=== PATIENT | female | born 1975 | race Two or more races ===

== ENCOUNTER → 2024-07-22 09:12 | Outpatient (CLI) | payer OTHER ==
[2024-07-22 09:39] LABS: HEMOGLOBIN 10.7 g/dL (12.0-15.00); MEAN CELL VOLUME 77.6 fL (80.00-100.00); MEAN CORPUSCULAR HEMOGLOBIN 25.2 pg (27.00-32.0); MEAN CORPUSCULAR HGB CONC 32.4 g/dl (32.0-36.0); PLATELET COUNT 289 K/uL (150-450); RED BLOOD COUNT 4.25 M/uL (4.00-6.00); RED CELL DISTRIBUTION WIDTH 15.8 % (11.5-14.5)
[2024-07-22 11:03] LABS: FERRITIN 3.1 NG/ML (8-252)
== END | disposition home or self-care (01) ==
LOC: LAB 09:12
PROVIDERS: ATTEND Internal Medicine Hematology & Oncology
DX: D50.0 Iron deficiency anemia secondary to blood loss (chronic) (principal)

== ENCOUNTER 2024-08-06 09:37 | Emergency (ER) | payer OTHER ==
[~2024-08-06] VITALS: Ht 157.5 cm; Wt 72.6 kg
[2024-08-06] MEDS ORDERED: SYNTHROID137 MCG PO (10:02)
[2024-08-06 10:52] LABS: HEMATOCRIT 34.7 % (36.0-45.00); HEMOGLOBIN 11.4 g/dL (12.0-15.00); MEAN CELL VOLUME 77.5 fL (80.00-100.00); MEAN CORPUSCULAR HEMOGLOBIN 25.4 pg (27.00-32.0); MEAN CORPUSCULAR HGB CONC 32.8 g/dl (32.0-36.0); PLATELET COUNT 280 K/uL (150-450); RED BLOOD COUNT 4.48 M/uL (4.00-6.00); RED CELL DISTRIBUTION WIDTH 16.5 % (11.5-14.5)
[2024-08-06 11:36] LABS: ALBUMIN 3.8 gm/dL (3.4-5.0); BILIRUBIN TOTAL 0.75 mg/dL (0.3-1.2); CALCIUM 8.7 mg/dL (8.5-10.1); CREATININE SERUM 0.83 mg/dL (0.55-1.02); GFR 73.37; POTASSIUM 3.6 mEq/L (3.5-5.1); TOTAL PROTEIN 7.8 gm/dL (6.4-8.2)
[2024-08-06 14:44] VITALS: BP 154/81; O2SAT 98
== END 2024-08-06 14:45 | disposition home or self-care (01) ==
LOC: ER 09:39
PROVIDERS: General Practice
DX: M54.2 Cervicalgia (principal); E03.9 Hypothyroidism, unspecified; Z85.850 Personal history of malignant neoplasm of thyroid

== ENCOUNTER 2024-09-15 19:22 | Emergency (ER) | payer OTHER ==
[~2024-09-15] VITALS: Ht 157.5 cm; Wt 72.6 kg
[~2024-09-15 19:22] MED LIST: SYNTHROID137 MCG PO
[2024-09-15] MEDS ORDERED: KETOROLAC TROMETHAMINE 30 MG VIAL IM STA (21:09)
[2024-09-15] MEDS ORDERED: IBU600 MG PO (23:12)
== END 2024-09-15 23:23 | disposition home or self-care (01) ==
LOC: ER 19:24
DX: S92.502A Displaced unspecified fracture of left lesser toe(s), initial encounter for closed fracture (principal); W22.8XXA Striking against or struck by other objects, initial encounter; Y93.89 Activity, other specified; Y92.89 Other specified places as the place of occurrence of the external cause
CPT/HCPCS: 73630; 96372; 99283; J1885

== ENCOUNTER 2024-11-28 07:44 | Outpatient (CLI) | payer OTHER ==
[~2024-11-28 07:44] MED LIST changes: +IBU600 MG PO
[2024-11-28 09:21] LABS: % SATURACION 8.2 % (15-50)
[2024-11-28 09:23] LABS: FERRITIN 4.9 NG/ML (8-252)
[2024-11-28 09:43] LABS: HEMATOCRIT 36.6 % (36.0-45.00); HEMOGLOBIN 12.1 g/dL (12.0-15.00); MEAN CELL VOLUME 79.1 fL (80.00-100.00); MEAN CORPUSCULAR HEMOGLOBIN 26.1 pg (27.00-32.0); PLATELET COUNT 275 K/uL (150-450); RED BLOOD COUNT 4.63 M/uL (4.00-6.00)
== END 2024-11-28 07:48 | disposition home or self-care (01) ==
LOC: LAB 07:44
DX: D50.0 Iron deficiency anemia secondary to blood loss (chronic) (principal)

== ENCOUNTER 2025-01-02 08:13 | Outpatient (CLI) | payer OTHER ==
[2025-01-02 09:54] LABS: HEMATOCRIT 34.7 % (36.0-45.00); HEMOGLOBIN 11.3 g/dL (12.0-15.00); MEAN CELL VOLUME 80.7 fL (80.00-100.00); MEAN CORPUSCULAR HEMOGLOBIN 26.3 pg (27.00-32.0); MEAN CORPUSCULAR HGB CONC 32.5 g/dl (32.0-36.0); PLATELET COUNT 258 K/uL (150-450); RED CELL DISTRIBUTION WIDTH 18.6 % (11.5-14.5)
[2025-01-02 10:16] LABS: PH,URINE 6.5 (5.0-8.0); URINE APPEARANCE Clear; URINE BILIRRUBIN Negative (NEGATIVE); URINE COLOR Yellow; URINE GLUCOSE Negative (NEGATIVE); URINE KETONE Negative (NEGATIVE); URINE LEUKOCYTE Negative; URINE NITRATE Negative; URINE PROTEIN Negative (NEGATIVE)
[2025-01-02 10:17] LABS: URINE BACTERIA 48.9 uL (0.0-1933); URINE EPITHELIAL CELLS 6.1 uL (0.0-38.8); URINE WBC 2.8 uL (0.0-23.2)
[2025-01-02 10:20] LABS: URINE BLOOD TRACE
[2025-01-02 10:34] LABS: URIC ACID 5.2 mg/dL (2.5-7.5)
[2025-01-02 11:03] LABS: ALBUMIN 3.5 gm/dL (3.4-5.0); ALKALINE PHOSPHATASE 61 U/L (50-136); ALT/SGPT 23 U/L (12-78); AMYLASE 91 U/L (25-115); ANION GAP 10 (10.0-20.0); AST/SGOT 16 U/L (15-37); BLOOD UREA NITROGEN 12 mg/dL (7-18); BUN CREA RATIO 15 (7.0-25.0); CALCIUM 8.7 mg/dL (8.5-10.1); CARBON DIOXIDE 28 mEq/L (21-32); CHLORIDE 106 mmol/L (98-107); CHOL HDL RATIO 3.4 (0-5.0); CHOLESTEROL 158 mg/dL (0-200); CREATININE SERUM 0.78 mg/dL (0.55-1.02); FREE TRIODOTIRONINE 2.01 pg/ml (2.18-3.98); GFR 78.83; GLOBULINA 3.6 G/DL (2.4-3.5); GLUCOSE FASTING 87 mg/dL (65-100); HDL 47 mg/dl (40-60); LDL 92 mg/dl (0-130); LIPASE 90 U/L (13-75); OSMOLALITY SERUM 279 MOSM/KG (275-295); POTASSIUM 3.76 mEq/L (3.5-5.1); SODIUM 140 mmol/L (136-145); T4 FREE 0.88 NG/ML (0.76-1.46); T4 TOTAL 6.55 UG/DL (4.8-13.9); TOTAL PROTEIN 7.1 gm/dL (6.4-8.2); TRIGLYCERIDES 95 mg/dL (0-150); VLDL 19 (0-39)
[2025-01-02 11:20] LABS: C-REACTIVE PROTEIN < 0.29 MG/DL (0.00-0.29); FERRITIN 3.8 NG/ML (8-252)
[2025-01-04 11:53] LABS: VITAMIN D3 25 HYDROXY 10.13 ng/ml (30-120)
[2025-01-05 07:06] LABS: HEPATITIS B SURFACE ANTIBODY Non Reactive (.)
[2025-01-05 09:10] LABS: ANTI THYROID PEROXIDASE 23 IU/mL (0-34); FOLLICLE STIMULATING HORMONE 1.7 mIU/mL (.); HOMOCYSTEINE 17.7 umol/L (0.0-14.5); INSULIN LEVELS 13.4 uIU/mL (2.6-24.9); LEUTEINIZING HORMONE 5.6 mIU/mL (.); PROGESTERONA 10.3 ng/mL (.)
== END 2025-01-02 08:19 | disposition home or self-care (01) ==
LOC: LAB 08:13
PROVIDERS: ATTEND Obstetrics & Gynecology
DX: E03.8 Other specified hypothyroidism (principal); E56.8 Deficiency of other vitamins; E55.0 Rickets, active; E78.2 Mixed hyperlipidemia; N95.1 Menopausal and female climacteric states; N95.8 Other specified menopausal and perimenopausal disorders; E16.1 Other hypoglycemia; E72.9 Disorder of amino-acid metabolism, unspecified; R79.82 Elevated C-reactive protein (CRP); Z13.1 Encounter for screening for diabetes mellitus; R30.0 Dysuria; D50.8 Other iron deficiency anemias; Z12.11 Encounter for screening for malignant neoplasm of colon; R74.8 Abnormal levels of other serum enzymes

== ENCOUNTER 2025-01-04 08:51 | Outpatient (CLI) | payer OTHER | END 2025-01-04 08:54 | disposition home or self-care (01) | LOC: MAMO-SONO 08:51 | PROVIDERS: ATTEND Obstetrics & Gynecology | DX: N64.4 Mastodynia (principal); Z80.3 Family history of malignant neoplasm of breast ==

== ENCOUNTER 2025-03-10 09:41 | Outpatient (CLI) | payer OTHER ==
[2025-03-10 10:40] LABS: BASO % 1.4 % (0.1-1.2); EOS # 0.07 (0.04-0.54); EOS % 1.4 % (0.7-7.0); HEMATOCRIT 31.6 % (34.1-44.9); HEMOGLOBIN 9.8 g/dL (11.2-15.7); LYMPH # 1.38 (1.18-3.74); LYMPH % 27.4 % (19.3-53.1); MEAN CORPUSCULAR HEMOGLOBIN 24.7 pg (25.6-32.2); MONO # 0.43 (0.24-0.82); MONO % 8.5 % (4.7-12.5); NEUT # 3.08 (1.56-6.13); NEUT % 61.1 % (34.0-71.1); PLATELET COUNT 324 K/uL (163-369); RED BLOOD COUNT 3.97 M/uL (3.93-5.22); RED CELL DISTRIBUTION WIDTH 13.1 % (11.6-14.4)
[2025-03-10 17:01] LABS: FERRITIN 2.9 NG/ML (8-252)
== END 2025-03-10 09:44 | disposition home or self-care (01) ==
LOC: LAB 09:41
PROVIDERS: ATTEND Internal Medicine Hematology & Oncology
DX: D50.0 Iron deficiency anemia secondary to blood loss (chronic) (principal)